=== PATIENT | female | born 1980 | race African-American/Black ===

== ENCOUNTER 2017-01-17 01:23 | Emergency (ER) ==
[2017-01-17 01:56] LABS: MANUAL DIFF NEEDED? NO
[2017-01-17 02:01] LABS: BASO% 0.5 % (0.0-0.8); EOS# 0.06 X1000 (0.0-0.7); EOS% 0.7 % (0.0-10.0); HEMATOCRIT 37.5 % (37.0-47.0); HEMOGLOBIN 12.6 g/dL (12.0-16.0); IMM GRAN# 0.02 X1000 (0.0-0.04); IMM GRAN% 0.2 % (0.0-0.5); LYMPH# 2.31 X1000 (1.2-3.4); LYMPH% 28.4 % (20.5-51.1); MCH 27.4 PG (27-31); MCHC 33.6 g/dL (33-37); MCV 81.5 FL (81-99); MONO# 0.46 X1000 (0.11-0.59); MONO% 5.7 % (1.7-9.3); MPV 10.1 FL (7.4-10.4); NEUT% 64.5 % (42.2-75.2); PLT 260 X1000 (130-400)
--- NOTE | 2017-01-17 02:15 | PROVIDER DOCUMENTATION ---
HPI-Respiratory General - General Source: patient - History of Present Illness-Resp Quality of Pain: reports: aching Severity in ED: reports: mild Onset/Duration: reports: other (2 WEEKS) Timing: reports: still present Cough Quality/Degree: reports: no cough Associated Symptoms: reports: short of breath Similar Symptoms Previously?: No Recently seen or treated by another doctor?: No <Enrique Navas - Last Filed: 01/17/17 02:43> <Gregorio Franco - Last Filed: 01/17/17 04:35> - General Chief Complaint: Shortness of Breath Stated Complaint: SOB Time Seen by Provider: 01/17/17 01:39 Allergies/Adverse Reactions: Patient Allergies Allergy/AdvReac Type Severity Reaction Status Date / Time No Known Allergies Allergy Unverified 01/17/17 01:37 Home Medications: Home Medication List Medication Instructions Recorded Confirmed Last Taken Type Metoprolol Succinate E.r. [Toprol 50 mg PO DAILY 12/22/14 01/17/17 08/16/16 History Xl] Levothyroxine [Synthroid] 100 mcg PO DAILY@0700 08/16/16 01/17/17 08/16/16 History Losartan [Cozaar] 25 mg PO DAILY 08/16/16 01/17/17 08/16/16 History Omeprazole [Prilosec] 40 mg PO DAILY #30 capsule.dr 08/17/16 01/17/17 Unknown Rx Amoxicillin/Potassium Clav 600 mg PO BID #100 ml 01/17/17 Unknown Rx [Augmentin Es-600 Suspension] Cholecalciferol (Vit D3) [Vitamin 5,000 unit PO DAILY 01/17/17 01/17/17 Unknown History D] Prednisolone Sod Phosphate 5 mg PO BID #50 ml 01/17/17 Unknown Rx [Pediapred] - History of Present Illness-Resp Nature of Presenting Problem: Ebenezer CABRALES PRESENTS TO ED WITH C/O PT STATES SOB WHEN SHE IS LYING DOWN X 2 WEEKS. PT STATES PAIN ON THE LEFT FROT SIDE OF NECK. (Enrique Naavs) Review of Systems - Adult - REVIEW OF SYSTEMS - ADULT Constitutional: denies: chills, fever Eyes: reports: no symptoms reported Ears, Nose, Mouth & Throat: reports: no symptoms reported Cardiovascular: denies: chest pain, palpitations, syncope Respiratory: reports: shortness of breath. denies: cough, wheezing Gastrointestinal: denies: abdominal pain, diarrhea, nausea, vomiting Genitourinary: reports: no symptoms reported Musculoskeletal: reports: neck pain (LT FRONT SIDE OF NECK). denies: back pain Integumentary: reports: no symptoms reported Neurological: denies: dizziness/vertigo, headache/migraines, syncope Psychiatric: reports: no symptoms reported Endocrine: reports: no symptoms reported Hematologic/Lymphatic: reports: no symptoms reported Allergic/Immunologic: reports: no symptoms reported All Other Systems: Reviewed and Negative <Enrique Navas - Last Filed: 01/17/17 02:43> Past History - Adult - PAST MEDICAL HISTORY-ADULT Review of Records: reports: Nursing Assessment Review, Medications Reviewed Cardiovascular: reports: HTN Gastrointestinal: reports: GERD Endocrine/Immune: reports: thyroid disorder - PRIOR SURGERIES/PROCEDURES Surgical/Procedure History: reports: appendectomy, cholecystectomy, hysterectomy , tonsillectomy - IMMUNIZATION STATUS Childhood Immunizations: See Nurse Assessment Flu Vaccine: See Nurse Assessment - FAMILY HISTORY Family History: other (had brother of heart attack at age 34) - SOCIAL HISTORY Smoking: denies Substance Use: denies Alcohol Use Frequency: never Living Situation: family <Enrique Navas Filed: 01/17/17 02:43> Physical Exam-General - CONSTITUTIONAL General Appearance: alert, mild distress - EYES Eyes: PERRL/EOMI, pink conjunctivae - HEAD, EARS, NOSE, MOUTH & THROAT HENMT: normocephalic/atraumatic, moist mucous membranes - NECK Neck: full range of motion, supple, tender lateral - RESPIRATORY Respiratory: chest non-tender, lungs clear, normal breath sounds - CARDIOVASCULAR Cardiovascular: normal peripheral pulses, regular rate, rhythm - GASTROINTESTINAL (ABDOMEN) Abdominal Exam: normal bowel sounds, non tender, soft - LYMPHATIC Lymphatic: no adenopathy - MUSCULOSKELETAL Back Exam: normal inspection, no CVA tenderness, no vertebral tenderness Extremity: normal range of motion, non-tender - SKIN Integumentary: normal color, normal turgor, warm/dry - NEUROLOGIC Neurologic: grossly normal - PSYCHIATRIC Psych/Mental Status: oriented x 3 <Enrique Navas Last Filed: 01/17/17 02:43> Progress - EKG 1 Time of EKG reading by physician:: 01:44 EKG Read and Signed by:: Gregorio Franco EKG Interpretation (*Must complete 3 of following elements*): Abnormal Rate: 88 Rhythm: NSR [place]: normal QRS: LVH (MINIMAL VOLTAGE CRITERIA) ME Interval: normal ST Wave: normal <Enrique Navas - Last Filed: 01/17/17 02:43> Departure <Enrique Navas - Last Filed: 01/17/17 02:43> - Departure Time of Disposition Order: 04:30 Certified Medical Emergency: Emergent <Gregorio Franco - Last Filed: 01/17/17 04:35> - Departure DIAGNOSIS: Acute bacterial tonsillitis Disposition: HOME 01 Condition: Stable Prescriptions: Amoxicillin/Potassium Clav [Augmentin Es-600 Suspension] 600 mg PO BID #100 ml Prednisolone Sod Phosphate [Pediapred] 5 mg PO BID #50 ml Attestation - Scribe Verification/Attestation Scribe:: Enrique Navas Acting as Scribe for:: Gregorio Franco Scribe documention review:: This chart was documented by a scribe and accurately reflects the service the provider performed and the decisions made by the provider. <Enrique Navas - Last Filed: 01/17/17 02:43> Physician Attestation
[2017-01-17 02:18] LABS: AGAP 13; ALBUMIN 3.7 g/dL (3.5-5.0); ALKALINE PHOSPHATASE 62 U/L (32-104); BUN 7 mg/dL (8-22); CALCIUM 8.5 mg/dL (8.8-10.2); CHLORIDE 103 mmol/L (98-107); CK PROFILE 83 U/L (24-173); COSMO 271; GOT 20 U/L (10-30); GPT 20 U/L (10-36); MAGNESIUM 1.9 mg/dL (1.5-2.7); POTASSIUM 3.2 mmol/L (3.5-5.1); SODIUM 136 mmol/L (136-145); TCO2 20 mmol/L (25-35); TOTAL PROTEIN 6.8 g/dL (6.3-8.3)
[2017-01-17 02:33] LABS: INR 1.04 (0.86-1.15); PROTIME 13.9 Seconds (12.1-15.5)
[2017-01-17 02:34] LABS: PTT PL 33.2 Seconds (22.6-43.9)
[2017-01-17] MEDS ORDERED: ZOFRAN IV ONE (04:28)
[2017-01-17] MEDS ORDERED: POTASSIUM CHLORIDE 20% LIQUID PO ONE (04:33)
[2017-01-17 04:47] VITALS: BP 138/86
--- NOTE | 2017-01-17 05:47 | EKG Report ---
Test Performed on : 01/17/2017 01:43:57 AM Test Reason : CHEST PAIN Blood Pressure : / mmHG Vent. Rate : 088 BPM Atrial Rate : 088 BPM P-R Int : 162 ms QRS Dur : 086 ms QT Int : 380 ms P-R-T Axes : 047 -04 009 degrees QTc Int : 459 ms Normal sinus rhythm. Minimal voltage criteria for LVH, may be normal variant Borderline ECG When compared with ECG of 16-AUG-2016 13:36, Questionable change in QRS axis Nonspecific T wave abnormality, improved in Anterior leads Unconfirmed Result
--- NOTE | 2017-01-17 12:23 | Diag Imaging Result Document ---
PROCEDURE NAME: NECK W/CONTRAST - 01/17/2017 CT NECK WITH CONTRAST: TECHNIQUE: Exam performed with intravenous contrast. A dose reduction protocol was used. No comparison exam. FINDINGS: The valleculae appear partially effaced which may relate to normal variation or mildly prominent lingual tonsils. There is no tonsillar abscess identified. There is no precervical soft-tissue swelling identified. The airway appears patent. There are nonspecific small bilateral intraparotid, submandibular, and cervical lymph nodes. There are no substantially enlarged or necrotic appearing lymph nodes identified. There is no focal mass lesion identified. There is no fluid collection or abscess identified. There is no focal substantial inflammation identified. There is no opaque foreign body identified. The epiglottis does not appear swollen. There is no opaque foreign body identified. IMPRESSION: Partial effacement of valleculae which may relate to normal variation or to mild enlargement of the lingual tonsils. Scattered nonspecific small lymph nodes. A [facility] physician provided preliminary results at 4:22 a.m. on 01/17/2017.
--- NOTE | 2017-01-17 12:46 | Diag Imaging Result Document ---
PROCEDURE NAME: CT THORAX W/CONTRAST - 01/17/2017 CT THORAX WITH CONTRAST: FINDINGS: Exam performed with intravenous contrast. A dose reduction protocol was used. No comparison exam. There is a 3 mm pleural-based nodule at the posterior right upper lobe (image [id number]). There is a 2 mm pleural-based nodule at the posterolateral left lower lobe (image [id number]). The lungs otherwise appear clear. There is no consolidation seen. There is no pleural effusion or pneumothorax identified. There are no abnormally enlarged mediastinal or hilar lymph nodes identified. There is no opaque foreign body identified. Included sections of upper abdomen show apparent fatty infiltration of the visualized portion of the liver. IMPRESSION: 1. Nonspecific tiny pleural-based nodules at posterior right upper lobe and posterolateral left lower lobe. Followup per [employer] guidelines is recommended. 2. No other evidence of acute disease in the thorax. There is apparent fatty infiltration of the visualized portion of the liver noted. A [facility] physician provided preliminary results at 4:19 a.m. on 01/17/2017.
== END 2017-01-17 05:16 | disposition home or self-care (01) ==
LOC: P.ED 01:23
DX: J03.80 Acute tonsillitis due to other specified organisms (principal); B96.89 Other specified bacterial agents as the cause of diseases classified elsewhere; K76.0 Fatty (change of) liver, not elsewhere classified; R91.8 Other nonspecific abnormal finding of lung field; R94.31 Abnormal electrocardiogram [ECG] [EKG]; R06.02 Shortness of breath; M54.2 Cervicalgia; I10 Essential (primary) hypertension; E07.9 Disorder of thyroid, unspecified; K21.9 Gastro-esophageal reflux disease without esophagitis; Z79.899 Other long term (current) drug therapy; Z82.49 Family history of ischemic heart disease and other diseases of the circulatory system
CPT/HCPCS: 70491; 71260; 80053; 82550; 83735; 83880; 84443; 84484; 85025; 85379; 85610; 85730; 93005; 96374; J2405; Q9967